=== PATIENT | female | born 1975 | race Caucasian/White ===

== ENCOUNTER → 2020-04-27 | Outpatient (CLI) | payer OTHER ==
[~2020-04-27] MED LIST: HYDROCODON-ACE1 EACH PO; HYDROCODONE-AP1 EAC6 PO; IBUPROFEN 400400 M1 PO; LEVOTHYROXINE0.05 MG PO; NEURONTIN 300300 M1 PO; NORTRIPTYLINE H50 M3; ONDANSETRON HCL4 M2 PO; PIOGLITAZONE15 MG; TRAMADOL 50 MG50 MG PO; VICTOZA0.6 MG/0.1
== END ==
LOC: M.PC 04-25 10:10
PROVIDERS: ATTEND Physical Medicine & Rehabilitation
DX: M79.641 Pain in right hand (principal); G89.4 Chronic pain syndrome

== ENCOUNTER → 2020-07-05 | Outpatient (CLI) | payer OTHER ==
[~2020-07-05] MED LIST changes: +CATAPRES-TTS 11 EACH TRANSDERM; +LORAZEPAM 1 MG T1 MG PO
--- NOTE | 2020-07-14 15:10 | PAINCON ---
[address] [address] PAIN MANAGEMENT CONSULTATION Name: SHARRI NASSAR Room: [facility]#: [id number] Admission: 07/05/20 Attend Phys: Edwin Mcdonald MD Discharge: Date of : 75 Report #: [id number] THIS REPORT FOR: //name// cc: Yury Pereira MD, Bruce D. MD ~ THIS REPORT FOR: //name// CC: Yury Mcdonald DATE OF SERVICE: 07/05/2020 CHIEF COMPLAINT: Chronic right hand pain. HISTORY: The patient is a 45-year-old female, who has been seen in the Pain Clinic because of possible complex regional pain syndrome involving her right arm. She injured herself in 10/2019. She experienced some trauma. She noticed some increased pain and discomfort out of proportion with what one would expect. She has been treated conservatively. She has undergone occupational therapy. She is experiencing pain in the right arm with pain radiating down into the third to the fifth finger. She characterizes it as a burning, numb type of discomfort. It is sensitive to light touch. She notes change in color. She has experienced some swelling. She finds it difficult to use her right hand and grasp items. She has tried medications to help with the discomfort. Her pain continues to be problematic. ALLERGIES: IV CONTRAST DYE, CODEINE, PENICILLIN, SULFA, INFLUENZA VIRUS VACCINE. PAST MEDICAL HISTORY: 1. Fibromyalgia. 2. Adalberto's disease. 3. Insulin-dependent diabetes mellitus. PAST SURGICAL HISTORY: 1. x 2. 2. Appendectomy. 3. Cholecystectomy. SOCIAL HISTORY: She works in the medical field. Denies use of tobacco. PHYSICAL EXAMINATION: GENERAL: The patient is a well-developed, well-nourished, white female. Appears her stated age. She is alert and oriented x 3. HEENT: Normocephalic, atraumatic. Extraocular eye muscles intact. Sclerae nonicteric. [place] [id number] PAIN MANAGEMENT CONSULTATION Name: SHARRI NASSAR Room: [facility]#: [id number] Admission: 07/05/20 Attend Phys: Edwin Mcdonald MD Discharge: Date of : 75 Report #: [id number] NECK: Without adenopathy or JVD. HEART: Regular rate. LUNGS: Clear. ABDOMEN: Protuberant. MUSCULOSKELETAL: Upper extremity muscle strength is judged to be 4+ on the right side. The patient's muscle strength on the left is 5-/5. The patient has loss of machine heel seat fitter strength on the right. There is some swelling in the lower extremity. It is difficult to distinguish knuckles in her hands because of the swelling. Notes some increased hypersensitivity to the affected hand. Skin is not showing a significant change in color. No significant swelling is noted today. Positive allodynia. General sensation is grossly intact. Lower extremity muscle strength is judged to be 5/5 for the major muscle groups in the lower extremity. IMPRESSION: 1. Right hand pain with clinical findings consistent with complex regional pain syndrome. 2. Diabetes mellitus. 3. Fibromyalgia. 4. Adalberto's disease. RECOMMENDATIONS: We discussed treatment options with the patient. At this juncture, she continues to have pain and discomfort, which is problematic, radiating down into her right arm. She is losing some of the function because of the pain and discomfort. We discussed the treatment for reflex sympathetic dystrophy. We discussed the sympathetic innervation to the upper extremity and side of the face. We discussed the benefits and risks of a stellate ganglion block. These blocks have been helpful with reflex sympathetic dystrophy type pain in some patients. Her pain has been ongoing now greater than 6 months. Possible complications of the procedure, which could include infection, bleeding, increased pain, trauma, nerve damage, and possibility of seizures with injection of local anesthetic into vascular system were discussed. The patient elects to proceed. PROCEDURE NOTE: The patient was taken to the procedure area. She was then assisted in getting on the examination table. She was placed in the supine position. Fluoroscopy was used to identify the C6 vertebrae. Her neck was sterilely prepped with chlorhexidine solution and allowed to dry. A skin wheal with 1% lidocaine was performed. A 23-gauge stellate ganglion needle with side port was advanced slowly. There was no heme. No paresthesias. After the needle touched the osseous area, it remained intact. A solution of 7 mL of 0.25% bupivacaine and 3 mL of 1% lidocaine without preservative and 40 mg triamcinolone was slowly injected over approximately 3 minutes with injection of 1 mL volume aspiration and watching for symptoms when local injection to the vascular system was undertaken. The patient did not complain of discomfort during the procedure. She did not cough during the procedure. After 11 mL of [facility] [address] [place] [address] PAIN MANAGEMENT CONSULTATION Name: SHARRI NASSAR Room: [facility]#: [id number] Admission: 07/05/20 Attend Phys: Edwin Mcdonald MD Discharge: Date of : 75 Report #: [id number] fluid was injected, needle was removed. There was no bleeding. Pressure was held for an appropriate amount of time. The patient was then taken to the recovery room. 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 The patient remained in the Pain Clinic for an appropriate amount of time. She was advised not to drink for the next 4 hours. We have explained that the local anesthetic could cause numbing of swallowing nerves on the right side. She will first sip water before proceeding to eat any items. She will call us if she has any concerns. We have discussed the use of clonidine 1/Catapres patch to the right area. This has been successful in some cases in helping to improve blood flow to the affected area and help with some congestion that the patients experience with reflex sympathetic dystrophy. A script for a patch to be worn for 7 days has been provided. Should the patient notice problems with orthostatic changes, she will remove the patch. We would like to thank you for letting us participate in her care. We hope she continues to improve. <ELECTRONICALLY SIGNED> By: Edwin Mcdonald MD 07/14/20 1510 [id number]. Koko Mcdonald MD /nt
== END | disposition home or self-care (01) ==
LOC: M.PC 12:15
PROVIDERS: ATTEND Anesthesiology Pain Medicine
DX: M25.551 Pain in right hip (principal); E11.9 Type 2 diabetes mellitus without complications; Z88.0 Allergy status to penicillin; Z88.1 Allergy status to other antibiotic agents; Z88.2 Allergy status to sulfonamides; Z90.49 Acquired absence of other specified parts of digestive tract; Z98.890 Other specified postprocedural states; Z79.899 Other long term (current) drug therapy